=== PATIENT | male | born 1970 | race Caucasian/White ===

== ENCOUNTER → 2019-07-18 | Outpatient (CLI) | payer OTHER ==
[~2019-07-18] MED LIST: AFRI0.056; AFRI0.058; CETI10TA PO; CYCL10TA3 PO; MAPA500T17 PO; PERC5TAB PO; TIZA4CAP PO; tylenol OR
== END ==
LOC: M LABSMTC 09:39
PROVIDERS: ATTEND Physical Medicine & Rehabilitation
DX: Z03.818 Encounter for observation for suspected exposure to other biological agents ruled out (principal); Z11.59 Encounter for screening for other viral diseases